=== PATIENT | female | born 1995 | race Caucasian/White ===

== ENCOUNTER 2018-06-10 13:53 | Inpatient (IN) ==
[2018-06-10] MEDS ORDERED: BUTORPHANOL 2 MG/ML VIAL IV PRN (14:28)
[2018-06-10] MEDS ORDERED: LACTATED RINGERS 1,000 ML IV SCH (14:30)
[2018-06-10 14:58] LABS: Basophils % 0.2 % (0.0-0.8); Eosinophils # 0.1 10*3/uL (0.0-0.87); Eosinophils % 0.4 % (0.00-10.9); Hematocrit 26.6 VOL% (35.7-47.0); Hemoglobin 8.5 GM/DL (12.0-16.0); Immature Granulocytes % 0.5 %; Immature Granulocytes Absolute 0.06 #; Lymphocytes # 1.9 10*3/uL (1.4-4.0); Lymphocytes % 16.2 % (21.3-54.2); Mean Corpuscular Hemoglobin 26 PG (27-34); Mean Corpuscular Volume 80.9 FL (87-102); Monocytes # 0.6 10*3/uL (0.11-0.8); Monocytes % 5.3 % (1.7-12.7); Neutrophils # 9.1 10*3/uL (1.4-7.4); Neutrophils % 77.4 % (38.7-73.9); Platelet Count 149 T/CUMM (130-400); Red Blood Count 3.29 MC/CUMM (3.8-5.5); Red Cell Distribution Width 14.6 % (9.3-17.3); White Blood Count 11.8 T/CUMM (4-12)
[2018-06-10 15:18] LABS: Alanine Aminotransferase 9 U/L (13-56); Albumin 2.7 G/DL (3.4-5.0); Alkaline Phosphatase 184 U/L (45-117); Aspartate Amino Transferase 10 U/L (0-37); Bilirubin,Total < 0.39 MG/DL (0.2-1.0); Blood Urea Nitrogen 6 MG/DL (7-18); Calcium 8.5 MG/DL (8.5-10.1); Glucose 109 MG/DL (74-106); Osmolality,Calculated 277.4 MOS/KG (273-304); Potassium 3.2 MMOL/L (3.5-5.1); Sodium 140 MMOL/L (136-145); Total Protein 6.3 G/DL (6.4-8.3)
[2018-06-10 15:49] LABS: Giant Platelets 1+; Hypochromasia 2+; Microcytosis 1+; Platelet Estimate Adequate; Polychromasia Slight
[2018-06-11] MEDS ORDERED: OXYTOCIN/LR 20 UNIT/1,000 ML BAG IV SCH (10:00)
[2018-06-11] MEDS ORDERED: ePHEDrine 50 MG/ML AMP IV PRN (11:49)
[2018-06-11] MEDS ORDERED: hydrOXYzine HCL 25 MG/1 ML VIAL IM PRN (11:49)
[2018-06-11] MEDS ORDERED: CITRIC ACID/SODIUM CITRATE 30 ML UDCUP PO ONE (11:49)
[2018-06-11] MEDS ORDERED: PROMETHAZINE 25 MG/1 ML VIAL IM PRN (11:49)
[2018-06-11] MEDS ORDERED: NALOXONE 0.4 MG/ML VIAL IV PRN (11:49)
[2018-06-11] MEDS ORDERED: FAMOTIDINE 20 MG/2 ML VIAL IV ONE (11:49)
[2018-06-11] MEDS ORDERED: fentaNYL 2 MCG/ROPIV 0.2% EPID 100 ML EPIDURAL SCH (12:00)
[2018-06-11] MEDS: ONDANSETRON 4 MG/2 ML VIAL IV PRN ×2 (12:03→23:34)
[2018-06-11 14:53] LABS: Apearance,Urine CLEAR (Clear); Bilirubin,Urine Negative (Negative); Blood, Urine Moderate mg/dL (Negative); Glucose,Urine (UA) Negative (Negative); Ketones,Urine Negative (Negative); Nitrite,Urine Negative (Negative); Protein,Urine Negative; RBC,Urine <1 /HPF (0-4); Urine Color Straw (Yellow); Urine Specific Gravity 1.006 (1.001-1.035); Urine Urobilinogen < 2.0 EU/DL (0.2-1.0)
[2018-06-11] MEDS ORDERED: miSOPROStol 200 MCG TABLET ONE (20:21)
[2018-06-11] MEDS ORDERED: TRANEXAMIC ACID 1,000 MG/10 ML VIAL ONE (20:21)
[2018-06-11] MEDS ORDERED: CARBOPROST TROMETHAMINE 250 MCG/ML AMP IM ONE (20:22)
[2018-06-11] MEDS ORDERED: METHYLERGONOVINE 0.2 MG/1 ML AMP ONE (20:22)
[2018-06-11] MEDS ORDERED: diphenhydrAMINE 50 MG/1 ML VIAL IV ONE (20:51)
[2018-06-11] MEDS: diphenhydrAMINE 50 MG/1 ML VIAL IV PRN (20:52)
[2018-06-11] MEDS ORDERED: ACETAMINOPHEN 325 MG TABLET PO PRN (22:47)
[2018-06-11] MEDS ORDERED: ONDANSETRON 4 MG/2 ML VIAL IV PRN (22:47)
[2018-06-11] MEDS ORDERED: RHO(D) IMMUNE GLOBULIN 300 MCG SYRINGE IM ONE (22:47)
[2018-06-11] MEDS ORDERED: OXYTOCIN/LR 20 UNIT/1,000 ML BAG IV ONE (22:47)
[2018-06-11] MEDS ORDERED: PHENYLEPHRINE 1 MG/10 ML SYRINGE IV ONE (22:52)
[2018-06-11] MEDS ORDERED: MORPHINE 10 MG/10 ML VIAL ONE (22:53)
[2018-06-11] MEDS ORDERED: MIDAZOLAM 2 MG/2 ML VIAL ONE (22:53)
[2018-06-11] MEDS ORDERED: LIDOCAINE MPF 2% /EPI 20 ML VIAL ONE (22:54)
[2018-06-11] MEDS ORDERED: LACTATED RINGERS 1,000 ML IV SCH (23:00)
[2018-06-12 03:21] LABS: Basophils % 0.1 % (0.0-0.8); Hemoglobin 6.6 GM/DL (12.0-16.0); Immature Granulocytes % 0.6 %; Immature Granulocytes Absolute 0.12 #; Lymphocytes # 1.6 10*3/uL (1.4-4.0); Lymphocytes % 8.5 % (21.3-54.2); Mean Corpuscular HGB Conc 31.4 GM/DL (32-36); Mean Corpuscular Hemoglobin 26 PG (27-34); Mean Corpuscular Volume 81.7 FL (87-102); Mean Platelet Volume 14.1 FL (9.6-12.0); Monocytes # 0.8 10*3/uL (0.11-0.8); Monocytes % 4.3 % (1.7-12.7); Neutrophils # 16.6 10*3/uL (1.4-7.4); Neutrophils % 86.5 % (38.7-73.9); Platelet Count 111 T/CUMM (130-400); Red Blood Count 2.57 MC/CUMM (3.8-5.5); Red Cell Distribution Width 14.7 % (9.3-17.3); White Blood Count 19.2 T/CUMM (4-12)
[2018-06-12] MEDS: diphenhydrAMINE 50 MG/1 ML VIAL IV PRN (04:27)
[2018-06-12] MEDS ORDERED: SODIUM CHLORIDE 0.9% 1,000 ML IV PRN (05:03)
[2018-06-12 06:56] LABS: Basophils % 0.2 % (0.0-0.8); Eosinophils % 0.1 % (0.00-10.9); Hematocrit 20.6 VOL% (35.7-47.0); Immature Granulocytes % 0.6 %; Immature Granulocytes Absolute 0.11 #; Lymphocytes # 1.7 10*3/uL (1.4-4.0); Lymphocytes % 9.7 % (21.3-54.2); Mean Corpuscular HGB Conc 31.1 GM/DL (32-36); Mean Corpuscular Hemoglobin 25 PG (27-34); Mean Corpuscular Volume 81.7 FL (87-102); Mean Platelet Volume 14.6 FL (9.6-12.0); Monocytes # 0.7 10*3/uL (0.11-0.8); Monocytes % 4.1 % (1.7-12.7); Neutrophils # 14.8 10*3/uL (1.4-7.4); Neutrophils % 85.3 % (38.7-73.9); Platelet Count 117 T/CUMM (130-400); Red Blood Count 2.52 MC/CUMM (3.8-5.5); Red Cell Distribution Width 14.7 % (9.3-17.3); White Blood Count 17.3 T/CUMM (4-12)
[2018-06-12 06:58] LABS: Hemoglobin 6.4 GM/DL (12.0-16.0)
[2018-06-12 07:13] LABS: Hypochromasia 1+; Platelet Estimate Adequate
[2018-06-12 07:14] LABS: Microcytosis Slight
[2018-06-12] MEDS: FERROUS SULFATE 325 MG TABLET PO SCH ×2 (09:34→22:02)
[2018-06-12] MEDS: MULTIVITAMIN (PRENATAL) TABLET PO SCH (09:34)
[2018-06-12] MEDS: SERTRALINE 50 MG TABLET PO SCH (09:34)
[2018-06-12] MEDS: DOCUSATE SODIUM 100 MG CAPSULE PO SCH ×2 (09:34→22:02)
[2018-06-12 11:39] LABS: Hematocrit 21.4 VOL% (35.7-47.0); Hemoglobin 6.6 GM/DL (12.0-16.0)
[2018-06-12] MEDS ORDERED: ONDANSETRON 4 MG TABLET PO PRN (16:59)
[2018-06-12] MEDS: MAGNESIUM HYDROXIDE SUSP 30 ML UDCUP PO PRN (22:02)
[2018-06-12] MEDS ORDERED: RHO(D) IMMUNE GLOBULIN 300 MCG SYRINGE IM ONE (22:30)
[2018-06-13] MEDS: DOCUSATE SODIUM 100 MG CAPSULE PO SCH ×2 (09:15→20:47)
[2018-06-13] MEDS: MAGNESIUM HYDROXIDE SUSP 30 ML UDCUP PO PRN ×2 (09:15→20:47)
[2018-06-13] MEDS: SIMETHICONE CHEW 80 MG TABLET PO PRN (09:15)
[2018-06-13] MEDS: FERROUS SULFATE 325 MG TABLET PO SCH ×2 (09:15→20:47)
[2018-06-13] MEDS: SERTRALINE 50 MG TABLET PO SCH (09:15)
[2018-06-13] MEDS: MULTIVITAMIN (PRENATAL) TABLET PO SCH (09:15)
[2018-06-13] MEDS: IBUPROFEN 800 MG TABLET PO PRN ×2 (12:27→20:47)
[2018-06-14] MEDS: IBUPROFEN 800 MG TABLET PO PRN ×2 (08:11→17:40)
[2018-06-14] MEDS: MULTIVITAMIN (PRENATAL) TABLET PO SCH (08:11)
[2018-06-14] MEDS: SIMETHICONE CHEW 80 MG TABLET PO PRN (08:11)
[2018-06-14] MEDS: MAGNESIUM HYDROXIDE SUSP 30 ML UDCUP PO PRN (08:11)
[2018-06-14] MEDS: SERTRALINE 50 MG TABLET PO SCH (08:12)
[2018-06-14] MEDS: DOCUSATE SODIUM 100 MG CAPSULE PO SCH ×2 (08:13→20:54)
[2018-06-14] MEDS: FERROUS SULFATE 325 MG TABLET PO SCH ×2 (08:13→20:54)
[2018-06-14] MEDS ORDERED: SODIUM CHLORIDE 0.9% 1,000 ML IV PRN (14:16)
[2018-06-14 15:15] LABS: Basophils % 0.3 % (0.0-0.8); Eosinophils # 0.2 10*3/uL (0.0-0.87); Eosinophils % 1.9 % (0.00-10.9); Hematocrit 19.2 VOL% (35.7-47.0); Immature Granulocytes % 0.9 %; Immature Granulocytes Absolute 0.11 #; Lymphocytes # 1.7 10*3/uL (1.4-4.0); Lymphocytes % 14.3 % (21.3-54.2); Mean Corpuscular HGB Conc 30.2 GM/DL (32-36); Mean Corpuscular Hemoglobin 25 PG (27-34); Mean Corpuscular Volume 83.8 FL (87-102); Mean Platelet Volume 13.4 FL (9.6-12.0); Monocytes # 0.4 10*3/uL (0.11-0.8); Monocytes % 3.3 % (1.7-12.7); Neutrophils # 9.4 10*3/uL (1.4-7.4); Neutrophils % 79.3 % (38.7-73.9); Platelet Count 179 T/CUMM (130-400); Red Blood Count 2.29 MC/CUMM (3.8-5.5); Red Cell Distribution Width 14.9 % (9.3-17.3); White Blood Count 11.8 T/CUMM (4-12)
[2018-06-14 15:17] LABS: Hemoglobin 5.8 GM/DL (12.0-16.0)
[2018-06-14 22:04] LABS: Basophils % 0.3 % (0.0-0.8); Eosinophils # 0.3 10*3/uL (0.0-0.87); Hematocrit 25.1 VOL% (35.7-47.0); Hemoglobin 7.9 GM/DL (12.0-16.0); Immature Granulocytes % 1.4 %; Immature Granulocytes Absolute 0.18 #; Lymphocytes # 2.2 10*3/uL (1.4-4.0); Lymphocytes % 17.4 % (21.3-54.2); Mean Corpuscular HGB Conc 31.5 GM/DL (32-36); Mean Corpuscular Hemoglobin 27 PG (27-34); Mean Corpuscular Volume 84.5 FL (87-102); Mean Platelet Volume 13.4 FL (9.6-12.0); Monocytes # 0.6 10*3/uL (0.11-0.8); Monocytes % 4.8 % (1.7-12.7); Neutrophils # 9.2 10*3/uL (1.4-7.4); Neutrophils % 74.1 % (38.7-73.9); Platelet Count 189 T/CUMM (130-400); Red Blood Count 2.97 MC/CUMM (3.8-5.5); White Blood Count 12.5 T/CUMM (4-12)
[2018-06-14 22:35] VITALS: BP 136/74
== END 2018-06-14 23:30 | disposition home or self-care (01) | DRG 787 ==
LOC: N.LDOUT 13:53 → N.LD 13:55 → N.OB 06-12 03:00
PROVIDERS: ADMIT Obstetrics & Gynecology; ATTEND Obstetrics & Gynecology
PROC: LDCSECT (ICD-10-PCS; 2018-06-11 21:00)